=== PATIENT | female | born 1945 | race Caucasian/White ===

== ENCOUNTER → 2016-07-20 | Outpatient (CLI) | payer MEDICARE ==
--- NOTE | 2016-07-21 13:50 | MM ---
Reason for exam: screening (asymptomatic). Last mammogram was performed 6 months ago. History: Patient is postmenopausal. Physical Findings: A clinical breast exam by your physician is recommended on an annual basis and results should be correlated with mammographic findings. MG Screening Mammo w CAD Bilateral CC and MLO view(s) were taken. Prior study comparison: January 28, 2016, left breast MG diagnostic mammo LT w CAD. July 15, 2015, left breast MG 3d work up w/cad LT. July 10, 2015, bilateral MG screening mammo w CAD. May 15, 2014, mammogram, performed at [facility]. There are scattered fibroglandular densities. No significant changes when compared with prior studies. ASSESSMENT: Benign, BI-RAD 2 RECOMMENDATION: Routine screening mammogram of both breasts in 1 year.
== END ==
LOC: RADMAMWWP 10:17
PROVIDERS: ATTEND Internal Medicine
DX: Z12.31 Encounter for screening mammogram for malignant neoplasm of breast (principal)

== ENCOUNTER → 2017-05-13 | Outpatient (CLI) | payer MEDICARE ==
[2017-05-13 12:14] LABS: Basophils % (A) 1 %; Eosinophils # (A) 0.2 k/uL (0-0.7); Eosinophils % (A) 5 %; HCT 42.5 % (34.0-46.0); HGB 13.9 gm/dL (11.4-16.0); Lymphocytes # (A) 1.3 k/uL (1.0-4.8); Lymphocytes % (A) 30 %; MCH 28.9 pg (25.0-35.0); MCHC 32.7 g/dL (31.0-37.0); MCV 88.4 fL (80.0-100.0); Mean Platelet Volume 6.8; Monocytes # (A) 0.2 k/uL (0-1.0); Monocytes % (A) 5 %; Neutrophils # (A) 2.5 k/uL (1.3-7.7); Neutrophils % (A) 56 %; Platelet Count 245 k/uL (150-450); RBC 4.81 m/uL (3.80-5.40); RDW 13.1 % (11.5-15.5); WBC 4.4 k/uL (3.8-10.6)
[2017-05-13 12:23] LABS: ALT 82 U/L (9-52); AST 122 U/L (14-36); Albumin 4.5 g/dL (3.5-5.0); Alkaline Phosphatase 47 U/L (38-126); Anion Gap 13 mmol/L; Blood Urea Nitrogen 23 mg/dL (7-17); Carbon Dioxide 26 mmol/L (22-30); Chloride 103 mmol/L (98-107); Glucose 120 mg/dL (74-99); Potassium 4.2 mmol/L (3.5-5.1); Sodium 142 mmol/L (137-145); Total Bilirubin 0.5 mg/dL (0.2-1.3); Total Protein 7.3 g/dL (6.3-8.2)
--- NOTE | 2017-05-13 14:02 | CT ---
EXAMINATION TYPE: CT abdomen pelvis w con DATE OF EXAM: 05/13/2017 COMPARISON: NONE HISTORY: Back pain near kidney area CT DLP: 2096.8 mGycm CONTRAST: CT scan of the abdomen and pelvis is performed with Oral Contrast and with IV Contrast, patient injec mague with 100 mL of Omnipaque 300. FINDINGS: LUNG BASES-: No visible nodule. No infiltrate. LIVER/GB: Cholecystectomy clips are in place. There is evidence of hepatic steatosis. No space occ upying hepatic lesion. Biliary tree is of normal caliber. PANCREAS: No inflammation. No distinct mass. SPLEEN: No splenic enlargement. No lesion seen. ADRENALS: No nodule. No thickening. KIDNEYS/BLADDER: No hydronephrosis. No nephrolithiasis. No disctinct renal mass. Urinary bladder g rossly unremarkable. BOWEL: Normal appendix. Normal bowel caliber. No inflammation. GENITAL ORGANS: Hysterectomy changes. No evidence for adnexal mass. LYMPH NODES: No greater than 1cm abdominal or pelvic lymph nodes are appreciated. AORTA: No significant abnormality. OSSEOUS STRUCTURES: No significant abnormality is seen. OTHER: No significant additional abnormality is seen. IMPRESSION: 1. No significant abnormality to account for the patient's symptoms.
[2017-05-13 15:07] LABS: Appearance,Urine Clear (Clear); Bilirubin,Urine Negative (Negative); Blood,Urine Negative (Negative); Color,Urine Light Yellow; Glucose,Urine (UA) Negative (Negative); Ketones,Urine Negative (Negative); Leukocyte Esterase,Urine Negative (Negative); Nitrite,Urine Negative (Negative); PH, Urine 5.5 (5.0-8.0); Protein,Urine Negative (Negative); Urobilinogen,Urine <2.0 mg/dL (<2.0)
[2017-05-13 15:36] LABS: Erythrocyte Sedimentation Rate 8 mm/hr (0-20)
== END | disposition home or self-care (01) ==
LOC: RADCTMAIN 11:32
PROVIDERS: ATTEND Internal Medicine
DX: R10.9 Unspecified abdominal pain (principal); N39.0 Urinary tract infection, site not specified
CPT/HCPCS: 80053; 85652; 85025; 81003; 87086; 74177; 36415; Q9967

== ENCOUNTER → 2017-08-18 | Outpatient (CLI) | payer MEDICARE ==
--- NOTE | 2017-08-19 14:26 | MM ---
Reason for exam: screening (asymptomatic). Last mammogram was performed 1 year and 1 month ago. History: Patient is postmenopausal. Physical Findings: A clinical breast exam by your physician is recommended on an annual basis and results should be correlated with mammographic findings. MG Screening Mammo w CAD Bilateral CC and MLO view(s) were taken. Prior study comparison: July 20, 2016, bilateral MG screening mammo w CAD. January 28, 2016, left breast MG diagnostic mammo LT w CAD. The breast tissue is heterogeneously dense. This may lower the sensitivity of mammography. There is chronic nodularity bilaterally. No significant changes when compared with prior studies. ASSESSMENT: Benign, BI-RAD 2 RECOMMENDATION: Routine screening mammogram of both breasts in 1 year.
== END | disposition home or self-care (01) ==
LOC: RADMAMWWP 09:25
PROVIDERS: ATTEND Internal Medicine
DX: Z12.31 Encounter for screening mammogram for malignant neoplasm of breast (principal)
CPT/HCPCS: 77067

== ENCOUNTER → 2017-12-16 | Outpatient (CLI) | payer MEDICARE ==
[2017-12-16 11:33] LABS: Anion Gap 8 mmol/L; Blood Urea Nitrogen 16 mg/dL (7-17); Calcium 9.7 mg/dL (8.4-10.2); Carbon Dioxide 28 mmol/L (22-30); Chloride 107 mmol/L (98-107); Glucose 123 mg/dL (74-99); Magnesium 1.8 mg/dL (1.6-2.3); Potassium 4.1 mmol/L (3.5-5.1); Sodium 143 mmol/L (137-145)
== END | disposition home or self-care (01) ==
LOC: LABWHC1 10:15
PROVIDERS: ATTEND Internal Medicine
DX: E87.8 Other disorders of electrolyte and fluid balance, not elsewhere classified (principal); I10 Essential (primary) hypertension
CPT/HCPCS: 36415; 80048; 83735

== ENCOUNTER → 2018-01-04 | Outpatient (CLI) | payer MEDICARE ==
[2018-01-04 17:45] LABS: Hemoglobin A1C 6.2 % (4.0-6.0)
== END | disposition home or self-care (01) ==
LOC: LABWHC1 10:19
PROVIDERS: ATTEND Internal Medicine
DX: E11.9 Type 2 diabetes mellitus without complications (principal)
CPT/HCPCS: 36415; 83036

== ENCOUNTER → 2018-04-22 | Outpatient (CLI) | payer MEDICARE ==
[2018-04-22 18:29] LABS: Anion Gap 7.4 mmol/L (4.00-12.00); Carbon Dioxide 28.6 mmol/L (21.6-31.8); Potassium 4.4 mmol/L (3.5-5.5)
== END | disposition home or self-care (01) ==
LOC: LABWHC1 12:43
PROVIDERS: ATTEND Internal Medicine
DX: E11.9 Type 2 diabetes mellitus without complications (principal)
CPT/HCPCS: 36415; 80048; 83036

== ENCOUNTER → 2018-05-09 | Outpatient (CLI) | payer MEDICARE ==
--- NOTE | 2018-05-09 12:17 | XR ---
Left femur HISTORY: Osteoarthritis, pain 2 views of the left femur submitted on 5 images Bone mineralization is somewhat reduced. Joint space loss present at the medial compartment of the le ft knee with subchondral sclerosis and marginal spurring. Alignment is maintained. No fracture or dis location. IMPRESSION: Osteoarthritis left knee, suspect underlying osteopenia.
== END ==
LOC: RADXRMAIN 10:57
PROVIDERS: ATTEND Internal Medicine
DX: M81.0 Age-related osteoporosis without current pathological fracture (principal)

== ENCOUNTER → 2018-07-11 | Outpatient (CLI) | payer MEDICARE ==
[2018-07-11 11:42] LABS: Basophils % (A) 1 %; Eosinophils # (A) 0.2 k/uL (0-0.7); Eosinophils % (A) 4 %; HCT 38.9 % (34.0-46.0); HGB 12.7 gm/dL (11.4-16.0); Lymphocytes # (A) 1.2 k/uL (1.0-4.8); Lymphocytes % (A) 29 %; MCH 29.3 pg (25.0-35.0); MCHC 32.5 g/dL (31.0-37.0); Mean Platelet Volume 6.9; Monocytes # (A) 0.2 k/uL (0-1.0); Monocytes % (A) 6 %; Neutrophils # (A) 2.4 k/uL (1.3-7.7); Neutrophils % (A) 58 %; Platelet Count 220 k/uL (150-450); RBC 4.33 m/uL (3.80-5.40); RDW 13.7 % (11.5-15.5); WBC 4.1 k/uL (3.8-10.6)
[2018-07-11 13:35] LABS: Erythrocyte Sedimentation Rate 8 mm/hr (0-20)
[2018-07-11 18:43] LABS: ALT 43 U/L (8-44); AST 49 U/L (13-35); Alkaline Phosphatase 27 U/L (41-126); C Reactive Protein <0.4 mg/dL (0.0-0.8); Calcium 9.6 mg/dL (8.7-10.3); Carbon Dioxide 25.7 mmol/L (21.6-31.8); Chloride 109 mmol/L (96-109); Cholesterol 160 mg/dL (0-200); Glucose 105 mg/dL (70-110); LDL Cholesterol,Calculated 74.2 mg/dL (0.0-131.0); Magnesium 1.9 mg/dL (1.5-2.4); Potassium 4.1 mmol/L (3.5-5.5); Sodium 142 mmol/L (135-145); Total Bilirubin 0.4 mg/dL (0.3-1.2); Total Protein 6.2 g/dL (6.2-8.2)
[2018-07-11 18:49] LABS: Creatine Kinase 36 U/L (26-186); Uric Acid 8.1 mg/dL (2.9-7.7)
== END | disposition home or self-care (01) ==
LOC: LABWHC1 10:13
PROVIDERS: ATTEND Internal Medicine
DX: E11.9 Type 2 diabetes mellitus without complications (principal); E78.5 Hyperlipidemia, unspecified; I10 Essential (primary) hypertension; E55.9 Vitamin D deficiency, unspecified
CPT/HCPCS: 36415; 80053; 80061; 82272; 82306; 82550; 83036; 83735; 84443; 84550; 85025; 85652; 86140

== ENCOUNTER → 2018-08-31 | Outpatient (CLI) | payer MEDICARE ==
--- NOTE | 2018-09-02 11:54 | MM ---
Reason for exam: screening (asymptomatic). Last mammogram was performed 1 year ago. History: Patient is postmenopausal. Physical Findings: A clinical breast exam by your physician is recommended on an annual basis and results should be correlated with mammographic findings. MG Screening Mammo w CAD Bilateral CC and MLO view(s) were taken. Prior study comparison: August 18, 2017, bilateral MG screening mammo w CAD. July 20, 2016, bilateral MG screening mammo w CAD. The breast tissue is heterogeneously dense. This may lower the sensitivity of mammography. There is chronic nodularity bilaterally. No significant changes when compared with prior studies. ASSESSMENT: Benign, BI-RAD 2 RECOMMENDATION: Routine screening mammogram of both breasts in 1 year.
== END | disposition home or self-care (01) ==
LOC: RADMAMWWP 13:00
PROVIDERS: ATTEND Internal Medicine
DX: Z12.31 Encounter for screening mammogram for malignant neoplasm of breast (principal)
CPT/HCPCS: 77067

== ENCOUNTER → 2018-12-27 | Outpatient (CLI) | payer MEDICARE ==
[2018-12-27 18:13] LABS: Basophils % (A) 1 %; Eosinophils # (A) 0.2 k/uL (0-0.7); Eosinophils % (A) 5 %; HCT 37.9 % (34.0-46.0); HGB 12.5 gm/dL (11.4-16.0); Lymphocytes # (A) 1.3 k/uL (1.0-4.8); Lymphocytes % (A) 31 %; MCH 29.4 pg (25.0-35.0); MCV 89.1 fL (80.0-100.0); Mean Platelet Volume 6.7; Monocytes # (A) 0.2 k/uL (0-1.0); Monocytes % (A) 6 %; Neutrophils # (A) 2.4 k/uL (1.3-7.7); Neutrophils % (A) 55 %; Platelet Count 201 k/uL (150-450); RBC 4.26 m/uL (3.80-5.40); RDW 13.7 % (11.5-15.5); WBC 4.3 k/uL (3.8-10.6)
[2018-12-27 18:19] LABS: Appearance,Urine Cloudy (Clear); Bacteria,Urine Few /hpf; Bilirubin,Urine Negative (Negative); Blood,Urine Negative (Negative); Color,Urine Yellow; Glucose,Urine (UA) Negative (Negative); Ketones,Urine Negative (Negative); Leukocyte Esterase,Urine Small (Negative); Mucus,Urine Rare /hpf; Nitrite,Urine Positive (Negative); Protein,Urine Negative (Negative); RBC,Urine 1 /hpf (0-5); Specific Gravity,Urine 1.019 (1.001-1.035); Squamous Epithelial Cell,Urine 8 /hpf (0-4); Urobilinogen,Urine <2.0 mg/dL (<2.0); WBC,Urine 5 /hpf (0-5)
[2018-12-27 18:30] LABS: Albumin 4.2 g/dL (3.5-5.0); Calcium 9.3 mg/dL (8.4-10.2); Potassium 3.7 mmol/L (3.5-5.1); Total Bilirubin 0.3 mg/dL (0.2-1.3); Total Protein 6.9 g/dL (6.3-8.2)
== END | disposition home or self-care (01) ==
LOC: LABPAT 16:50
PROVIDERS: ATTEND Orthopaedic Surgery
DX: Z01.812 Encounter for preprocedural laboratory examination (principal); Z88.2 Allergy status to sulfonamides
CPT/HCPCS: 80053; 81001; 85025; 87086

== ENCOUNTER → 2019-02-16 | Outpatient (CLI) | payer MEDICARE ==
[2019-02-16 16:15] LABS: Albumin 4.4 g/dL (3.80-4.90); Albumin/Globulin Ratio 2.2 (1.60-3.17); Bilirubin, Conjugated 0.2 mg/dL (0.20-0.40); Bilirubin,Unconjugated 0.4 mg/dL; Total Bilirubin 0.6 mg/dL (0.2-1.2); Total Protein 6.4 g/dL (6.2-8.2)
[2019-02-16 18:00] LABS: Hepatitis A Antibody IgM Equivocal (Non-Reactive); Hepatitis B Core IgM Non-Reactive (Non-Reactive); Hepatitis B Surface Antigen Non-Reactive (Non-Reactive); Hepatitis C IgG Antibody Non-Reactive (Non-Reactive)
== END ==
LOC: LABWHC1 09:36
PROVIDERS: ATTEND Internal Medicine
DX: K75.9 Inflammatory liver disease, unspecified (principal)
CPT/HCPCS: 36415; 80074; 80076

== ENCOUNTER → 2019-05-31 | Outpatient (CLI) | payer MEDICARE ==
[2019-05-31 19:01] LABS: African American GFR (CKD) 106.3 (60.0-200.0); Anion Gap 9.7 mmol/L (4.00-12.00); Calcium 9.3 mg/dL (8.7-10.3); Carbon Dioxide 29.3 mmol/L (21.6-31.8); Non-African American GFR(CKD) 91.7 (60.0-200.0); Potassium 3.6 mmol/L (3.5-5.5)
[2019-05-31 22:11] LABS: Hemoglobin A1C 6.3 % (4.0-6.0)
== END ==
LOC: LABWHC1 10:45
PROVIDERS: ATTEND Internal Medicine
DX: E11.65 Type 2 diabetes mellitus with hyperglycemia (principal)
CPT/HCPCS: 36415; 80048; 83036

== ENCOUNTER → 2020-06-28 | Outpatient (CLI) | payer MEDICARE ==
--- NOTE | 2020-07-02 08:52 | MM ---
Reason for exam: screening (asymptomatic). Last mammogram was performed 1 year and 10 months ago. History: Patient is postmenopausal. Physical Findings: A clinical breast exam by your physician is recommended on an annual basis and results should be correlated with mammographic findings. MG 3D Screening Mammo W/Cad Bilateral CC and MLO view(s) were taken. Prior study comparison: August 31, 2018, bilateral MG screening mammo w CAD. August 18, 2017, bilateral MG screening mammo w CAD. There are scattered fibroglandular densities. There is chronic nodularity in the left breast. No significant changes when compared with prior studies. ASSESSMENT: Benign, BI-RAD 2 RECOMMENDATION: Routine screening mammogram of both breasts in 1 year.
== END | disposition home or self-care (01) ==
LOC: RADMAMWWP 13:36
PROVIDERS: ATTEND Internal Medicine
DX: Z12.31 Encounter for screening mammogram for malignant neoplasm of breast (principal)
CPT/HCPCS: 77063; 77067

== ENCOUNTER 2020-07-19 21:44 | Observation (INO) | payer MEDICARE ==
[2020-07-19] MEDS ORDERED: IBUPROFEN 600 MG TAB PO STA (22:32)
[2020-07-19] MEDS ORDERED: ACETAMINOPHEN TAB 500 MG TAB PO STA (22:32)
--- NOTE | 2020-07-19 22:33 | ED ---
Fever HPI - General Chief Complaint: Fever Stated Complaint: Blood Sugar Issues,Fever Time Seen by Provider: 07/19/20 22:28 Source: patient Mode of arrival: wheelchair Limitations: no limitations - Related Data Home Medications Medication Instructions Recorded Confirmed Eleuterio/D3/Mag11/Zinc/Training And Development Officer/Arie/Bor 1 tab PO DAILY 01/20/16 01/28/16 [Caltrate 600+D Plus Tablet] Doxylamine Succinate [Unisom] 25 mg PO HS PRN 01/20/16 01/28/16 Fenofibrate 160 mg PO DAILY 01/20/16 01/28/16 Fexofenadine HCl [Marla Allergy] 180 mg PO DAILY PRN 01/20/16 01/28/16 Fish Oil/Dha/Epa [Fish Oil 1,200 2 cap PO BID 01/20/16 01/28/16 mg Fish Oil] Lisinopril/Hydrochlorothiazide 1 tab PO DAILY 01/20/16 01/28/16 [Lisinopril-Hctz 20-12.5 mg Tab] Multivitamins, Thera [Multivitamin] 1 tab PO DAILY 01/20/16 01/28/16 Pioglitazone HCl 30 mg PO DAILY 01/20/16 01/28/16 amLODIPine BESYLATE [Norvasc] 10 mg PO HS 01/20/16 01/28/16 metFORMIN HCL 1,000 mg PO BID 01/20/16 01/28/16 Aspirin EC [Ecotrin] 325 mg PO HS 01/21/16 01/28/16 Previous Rx's Medication Instructions Recorded HYDROcodone/APAP 5-325MG [[place] 1 tab PO Q6HR PRN #10 tab 01/28/16 5-325] Allergies Allergy/AdvReac Type Severity Reaction Status Date / Time Sulfa (Sulfonamide Allergy Rash/Hives Verified 01/28/16 15:57 Antibiotics) Review of Systems ROS Statement: Those systems with pertinent positive or pertinent negative responses have been documented in the HPI. ROS Other: All systems not noted in ROS Statement are negative. Past Medical History Past Medical History: Diabetes Mellitus, Hyperlipidemia, Hypertension History of Any Multi-Drug Resistant Organisms: None Reported Past Surgical History: Hysterectomy, Orthopedic Surgery, Tonsillectomy Past Psychological History: No Psychological Hx Reported Smoking Status: Never smoker Past Alcohol Use History: None Reported Past Drug Use History: None Reported General Exam Limitations: no limitations Course Vital Signs 07/19/20 07/19/20 22:17 23:10 Temperature 101.7 F H Pulse Rate 112 H Respiratory 18 18 Rate Blood Pressure 144/75 O2 Sat by Pulse 96 Oximetry Medical Decision Making - Lab Data Result diagrams: 07/19/20 23:00 07/19/20 23:00 Lab Results 07/19/20 07/19/20 07/19/20 Range/Units 23:00 23:00 23:00 WBC 10.5 (3.8-10.6) k/uL RBC 5.08 (3.80-5.40) m/uL Hgb 14.9 (11.4-16.0) gm/dL Hct 44.0 (34.0-46.0) % MCV 86.6 (80.0-100.0) fL MCH 29.3 (25.0-35.0) pg MCHC 33.8 (31.0-37.0) g/dL RDW 13.4 (11.5-15.5) % Plt Count 134 L (150-450) k/uL MPV 7.8 Neutrophils % 87 % Lymphocytes % 5 % Monocytes % 4 % Eosinophils % 2 % Basophils % 0 % Neutrophils # 9.1 H (1.3-7.7) k/uL Lymphocytes # 0.6 L (1.0-4.8) k/uL Monocytes # 0.5 (0-1.0) k/uL Eosinophils # 0.2 (0-0.7) k/uL Basophils # 0.0 (0-0.2) k/uL PT 11.4 (9.0-12.0) sec INR 1.1 (<1.2) APTT 22.7 (22.0-30.0) sec Sodium 136 L (137-145) mmol/L Potassium 3.8 (3.5-5.1) mmol/L Chloride 100 (98-107) mmol/L Carbon Dioxide 23 (22-30) mmol/L Anion Gap 13 mmol/L BUN 20 H (7-17) mg/dL Creatinine 0.63 (0.52-1.04) mg/dL Est GFR (CKD-EPI)AfAm >90 (>60 ml/min/1.73 sqM) Est GFR (CKD-EPI)NonAf 90 (>60 ml/min/1.73 sqM) Glucose 205 H (74-99) mg/dL Calcium 9.8 (8.4-10.2) mg/dL Magnesium 1.5 L (1.6-2.3) mg/dL Total Bilirubin 0.8 (0.2-1.3) mg/dL AST 90 H (14-36) U/L ALT 56 H (4-34) U/L Alkaline Phosphatase 108 (38-126) U/L Lactate Dehydrogenase 348 (313-618) U/L C-Reactive Protein 18.0 H (<10.0) mg/L Total Protein 7.5 (6.3-8.2) g/dL Albumin 4.3 (3.5-5.0) g/dL - EKG Data -: EKG Interpreted by Me (EKG shows sinus tachycardia rate 112 [place] 84 QRS 90 QTC 439) Disposition Clinical Impression: Fever Narrative: ro BActeremia Disposition: ADMITTED IP TO THIS HOSP Condition: Good Is patient prescribed a controlled substance at d/c from ED?: No Referrals: Ellis Ochoa MD [Primary Care Provider] - 1-2 days
[2020-07-19 23:22] LABS: Basophils % (A) 0 %; Eosinophils # (A) 0.2 k/uL (0-0.7); Eosinophils % (A) 2 %; HGB 14.9 gm/dL (11.4-16.0); Lymphocytes # (A) 0.6 k/uL (1.0-4.8); Lymphocytes % (A) 5 %; MCH 29.3 pg (25.0-35.0); MCHC 33.8 g/dL (31.0-37.0); MCV 86.6 fL (80.0-100.0); Mean Platelet Volume 7.8; Monocytes # (A) 0.5 k/uL (0-1.0); Monocytes % (A) 4 %; Neutrophils # (A) 9.1 k/uL (1.3-7.7); Neutrophils % (A) 87 %; Platelet Count 134 k/uL (150-450); RBC 5.08 m/uL (3.80-5.40); RDW 13.4 % (11.5-15.5); WBC 10.5 k/uL (3.8-10.6)
[2020-07-19 23:32] LABS: INR 1.1 (<1.2); Partial Thromboplastin Time 22.7 sec (22.0-30.0); Prothrombin Time 11.4 sec (9.0-12.0)
--- NOTE | 2020-07-19 23:32 | XR ---
EXAMINATION TYPE: XR chest 1V portable DATE OF EXAM: 07/19/2020 COMPARISON: 01/21/2016 HISTORY: Pneumonia. Chest pain TECHNIQUE: FINDINGS: Heart and mediastinum are normal. Lungs are clear. Diaphragm is normal. There are chest jocelynn ds. There is small granuloma in the right lower lobe. Bony thorax appears intact. IMPRESSION: No active cardiopulmonary disease. No change.
[2020-07-20 00:02] LABS: ALT 56 U/L (4-34); AST 90 U/L (14-36); African American GFR (CKD) >90 (>60 ml/min/1.73 sqM); Albumin 4.3 g/dL (3.5-5.0); Alkaline Phosphatase 108 U/L (38-126); Anion Gap 13 mmol/L; Blood Urea Nitrogen 20 mg/dL (7-17); Calcium 9.8 mg/dL (8.4-10.2); Carbon Dioxide 23 mmol/L (22-30); Chloride 100 mmol/L (98-107); Glucose 205 mg/dL (74-99); LDH 348 U/L (313-618); Magnesium 1.5 mg/dL (1.6-2.3); Non-African American GFR(CKD) 90 (>60 ml/min/1.73 sqM); Potassium 3.8 mmol/L (3.5-5.1); Sodium 136 mmol/L (137-145); Total Bilirubin 0.8 mg/dL (0.2-1.3); Total Protein 7.5 g/dL (6.3-8.2)
[2020-07-20] MEDS ORDERED: IBUPROFEN 400 MG TAB PO PRN (00:45)
[2020-07-20] MEDS ORDERED: ONDANSETRON 4 MG/2 ML VIAL IVP PRN (00:45)
[2020-07-20] MEDS ORDERED: MORPHINE SULFATE 4 MG/ML SYRINGE IV PRN (00:45)
[2020-07-20] MEDS ORDERED: NALOXONE 0.4 MG/ML 1 ML VIAL IV PRN (00:45)
[2020-07-20] MEDS ORDERED: ACETAMINOPHEN TAB 325 MG TAB PO PRN (00:45)
[2020-07-20] MEDS: SODIUM CHLORIDE 0.9% 1,000 ML IV SCH ×4 (01:34→22:32)
[2020-07-20 05:57] LABS: Appearance,Urine Clear (Clear); Bilirubin,Urine Negative (Negative); Blood,Urine Negative (Negative); Color,Urine Yellow; Glucose,Urine (UA) Negative (Negative); Hyaline Casts,Urine 28 /lpf (0-2); Ketones,Urine Negative (Negative); Leukocyte Esterase,Urine Trace (Negative); Mucus,Urine Few /hpf; Nitrite,Urine Negative (Negative); PH, Urine 5.5 (5.0-8.0); Protein,Urine Trace (Negative); RBC,Urine 1 /hpf (0-5); Specific Gravity,Urine 1.018 (1.001-1.035); Squamous Epithelial Cell,Urine 6 /hpf (0-4); Urobilinogen,Urine <2.0 mg/dL (<2.0); WBC,Urine 1 /hpf (0-5)
[2020-07-20 07:57] LABS: Glucose,Whole Blood 205 mg/dL (75-99)
[2020-07-20 12:08] LABS: Glucose,Whole Blood 252 mg/dL (75-99)
[2020-07-20] MEDS: INSULIN ASPART (NovoLOG) 100 UNIT/ML VIAL SQ SCH ×4 (13:14→20:55)
[2020-07-20] MEDS ORDERED: NON FORMULARY DRUG (Doxylamine Succinate [Unisom] 25 MG Tablet) PO PRN (13:20)
[2020-07-20] MEDS: NON FORMULARY DRUG (Cal/D3/Mag11/Zinc/Cop/Mang/Bor [Caltrate 600+D Plus Tablet] 1 EACH Tab PO SCH (13:34)
[2020-07-20] MEDS: CHOLECALCIFEROL 25 MCG (1000 IU) TABLET PO SCH (13:37)
[2020-07-20] MEDS: MULTIVITAMINS, THERA 1 EACH TAB PO SCH (13:37)
[2020-07-20] MEDS: METOPROLOL SUCCINATE (ER) 25 MG TAB.ER.24H PO SCH (13:37)
[2020-07-20] MEDS: MAGNESIUM SULFATE-D5W PMX 1 GM in DEXTROSE/WATER 1 100ML.BAG IVPB SCH ×2 (14:55→16:21)
--- NOTE | 2020-07-20 15:01 | P.HPIM ---
History of Present Illness H&P Date: 07/20/20 (Abnormal liver enzyme, fever post second shot of blood during the vaccination for covid) Chief Complaint: Patient presented with hyperglycemia uncontrolled diabetes and fever 102 at History and physical dictation on 07/20/[address] Ochoa . Chief complaint Patient presented to the emergency room at [facility] with the fever [id number] at home with the progressive increase in temperature associated with hyperglycemia with the underlying diabetes mellitus. 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 As her attending I was not notified with the admission. Hospital course: Patient admitted to the fourth floor [facility] with the IV antibiotic Rocephin and she received 1 g IV piggyback. With the diagnosis from the ER of fever of unknown etiology. Patient had a chest x-ray and was negative, her white count 10.5 normal hemoglobin 14.9 normal MCV 86.6 normal and the platelet count 134 no evidence of bleeding or hemoptysis or hematemesis. Also her PT and INR was normal and the PTT as well Chemistry in the ER indicating her sodium 136 potassium 3.8 chloride 100 and the carbon dioxide 23 and BUN of 20 and creatinine 0.63 also her E GFR was 94 non- her blood sugar was 2005 with hyperglycemia and uncontrolled. Calcium 9.8, magnesium low 1.5 was not received any magnesium in the ER that she had heart rate of 112 with the tachycardia we will infuse her with 2 g of magnesium and check tomorrow her magnesium. C-reactive protein 18 high and LDH 348 alk phos 108 pulses normal and the protein 7.5 albumin 4.3 Urine analysis was yellow clear and the pH of 5.5 trace protein and trace leukocyte esterase no evidence of urinary tract infection. Currently he has patient seen after the nursing staff called me and told me that the patient admitted to the hospital which I did not know from the ER. I came and checked the patient and she currently denied any fever or chills and her temperature is normal with the history clarification from the patient. Patient received her vaccination second shot MADRONA COVID vaccination and on and subsequently by the evening started to have the fever which is expected with [place] pot patient was worried about also the sugar the blood glucose. As patient admitted to the hospital they started her in the ER of Rocephin. IV piggyback 1 g daily. Past medical history: Patient had history of abnormal liver enzyme which is resistant as well as history of hepatitis a was fluctuating with the present of IgM and the past and repeat testing showed some still positivity which is unclear if it related to hepatic steatosis versus related to hepatitis A and if it is has a chronicity or chronic carrier is unclear. We'll be consulting infectious disease as well as a gastroenterology. Diabetes mellitus type 2 on oral hypoglycemic agent as well insulin however hyperglycemia was presented on admission. Hepaticus steatosis. ALLERGY sulfonamide. Social history: She is have to sons and 1 daughter. Nonsmoker, nondrinker. Right hip surgery. No history of DVT. Review of system: Neuropsychiatry negative Cardiovascular: Hypertension controlled, no history of tachycardia, history of hyper lipidemia. Pulmonary: No history of pneumonia or lung disease or shortness of breath. GI she has history of intermittent nausea and vomiting, history of hepaticus steatosis, resistant elevation of liver enzyme, history of hepatitis a in the past and lost check was IgM equivocal and repeated on this admission to clarify the etiology. With the consultation of the gastroenterology. And infectious disease : No evidence of urinary tract infection, urine control is satisfactory to the patient. Musculoskeletal: Arthritis but she is able to ambulate and walk normally. Endocrine hyperglycemia just recently after she had her shot of vaccination for Covid. The rest of 14 bullet was non-contributory. On physical examination: Temperature 101.7, subsequent 100 F oral on exam today on 07/20/2020 she is 98.3 or. Her heart rate at the time of admission 112 with the presence of tachycardia which subsequently 100 and currently 82. Respiratory rate was stable, pulse ox 95-96, Blood pressure on admission was 144/75 with a mean 98, on the exam patient blood pressure 109/56 with a mean 73. The head was normocephalic and atraumatic, pupil was equal reactive, conjunctivae bowel was pink no icterus, normal hearing, upper plate denture, lower jaw a few teeth. Neck was supple no JVD no thyromegaly no lymphadenopathy trachea midline. Chest is clear no wheezes nor rhonchi's. The heart: PMI in the fifth intercostal space outside midclavicular line normal S1-S2 no gallop she had a murmur on the left sternal border grade 2/6. Abdomen: Protuberant obese and positive bowel sounds no tenderness on the 4 quadrants. She had remote history of splenomegaly however I could not palpate. Extremities: No edema positive pulses and she is ambulatory Neurologically: No lateralizing sign, normal cranial nerve. Assessment: #1 fever on admission with no finding probably secondary to the second dose of Covid vaccination injection left arm which has been expected. #2 abnormal liver enzyme with the underlying history of positive hepatitis A #3 with a persistent liver enzyme and the possibilities of effect of hepatitis versus hepaticus steatosis we'll be asking the gastroenterology and the day infectious disease for help clarification. #4 hypomagnesemia, sinus tachycardia. Plan: We'll consult the gastroenterology, as well as infectious disease, for clarification and documentation of her current illness and the need for antibiotic which was given in the emergency room with the above information valid to me area Supplementation of the magnesium. Repeat laboratory in a.m. Monitor the temperature and the oxygen. Ambulate as tolerated. Discharge after the evaluation of both consulting physician. Controlled diabetes mellitus with her usual medication plus the insulin to scale. We'll restart her pioglitazone that she has been taken at home chronically. Past Medical History Past Medical History: Diabetes Mellitus, Hyperlipidemia, Hypertension History of Any Multi-Drug Resistant Organisms: None Reported Past Surgical History: Hysterectomy, Orthopedic Surgery, Tonsillectomy Past Anesthesia/Blood Transfusion Reactions: No Reported Reaction Past Psychological History: No Psychological Hx Reported Smoking Status: Never smoker Past Alcohol Use History: None Reported Past Drug Use History: None Reported - Past Family History Father Family Medical History: Myocardial Infarction (DC) Mother Family Medical History: COPD, CVA/TIA, Myocardial Infarction (DC) Medications and Allergies Home Medications Medication Instructions Recorded Confirmed Type Eleuterio/D3/Mag11/Zinc/Fuel Storage Technician/Arie/Bor 1 tab PO DAILY 01/20/16 07/20/20 History [Caltrate 600+D Plus Tablet] Doxylamine Succinate [Unisom] 25 mg PO HS PRN 01/20/16 07/20/20 History amLODIPine BESYLATE [Norvasc] 10 mg PO HS 01/20/16 07/20/20 History Aspirin EC [Ecotrin Low Dose] 81 mg PO HS 07/20/20 07/20/20 History Cholecalciferol [Vitamin D3 (25 25 mcg PO DAILY 07/20/20 07/20/20 History Mcg = 1000 Iu)] Insulin Aspart [NovoLOG Flexpen] See Protocol SQ AC-TID 07/20/20 07/20/20 History Insulin Glargine,Hum.rec.anlog 10 unit SQ HS 07/20/20 07/20/20 History [Lantus Solostar] Metoprolol Succinate [Toprol XL] 25 mg PO DAILY 07/20/20 07/20/20 History Multivit with Calcium,Iron,Min 1 tab PO DAILY 07/20/20 07/20/20 History [Women's Multivitamin] Allergies Allergy/AdvReac Type Severity Reaction Status Date / Time Sulfa (Sulfonamide Allergy Rash/Hives Verified 07/20/20 07:37 Antibiotics) Physical Exam Vitals: Vital Signs Temp Pulse Pulse Pulse Resp BP BP 07/20/20 08:45 18 07/20/20 08:00 98.4 F 81 18 121/67 07/20/20 03:30 98.3 F 82 18 109/56 07/20/20 01:45 100 07/20/20 00:55 100 F H 100 17 123/54 07/19/20 23:10 18 07/19/20 22:17 101.7 F H 112 H 18 144/75 Pulse Ox 07/20/20 08:45 07/20/20 08:00 95 07/20/20 03:30 95 07/20/20 01:45 07/20/20 00:55 96 07/19/20 23:10 07/19/20 22:17 96 Intake and Output 07/19/20 07/20/20 07/20/20 22:59 06:59 14:59 Other: Voiding Method Toilet Toilet Weight 87.997 kg 87.997 kg Results CBC & Chem 7: 07/19/20 23:00 07/19/20 23:00 Labs: Abnormal Lab Results - Last 24 Hours (Table) 07/19/20 07/19/20 07/20/20 Range/Units 23:00 23:00 05:30 Plt Count 134 L (150-450) k/uL Neutrophils # 9.1 H (1.3-7.7) k/uL Lymphocytes # 0.6 L (1.0-4.8) k/uL Sodium 136 L (137-145) mmol/L BUN 20 H (7-17) mg/dL Glucose 205 H (74-99) mg/dL POC Glucose (mg/dL) (75-99) mg/dL Magnesium 1.5 L (1.6-2.3) mg/dL AST 90 H (14-36) U/L ALT 56 H (4-34) U/L C-Reactive Protein 18.0 H (<10.0) mg/L Urine Protein Trace H (Negative) Ur Leukocyte Esterase Trace H (Negative) Ur Squamous Epith Cells 6 H (0-4) /hpf Hyaline Casts 28 H (0-2) /lpf Urine Mucus Few H (None) /hpf 07/20/20 07/20/20 Range/Units 07:52 12:06 Plt Count (150-450) k/uL Neutrophils # (1.3-7.7) k/uL Lymphocytes # (1.0-4.8) k/uL Sodium (137-145) mmol/L BUN (7-17) mg/dL Glucose (74-99) mg/dL POC Glucose (mg/dL) 205 H 252 H (75-99) mg/dL Magnesium (1.6-2.3) mg/dL AST (14-36) U/L ALT (4-34) U/L C-Reactive Protein (<10.0) mg/L Urine Protein (Negative) Ur Leukocyte Esterase (Negative) Ur Squamous Epith Cells (0-4) /hpf Hyaline Casts (0-2) /lpf Urine Mucus (None) /hpf Thrombosis Risk Factor Assmnt - Choose All That Apply Any of the Below Risk Factors Present?: Yes Each Factor Represents 1 point: Obesity (BMI >25) Other Risk Factors: Yes Each Risk Factor Represents 2 Points: Age 61-74 years Other congenital or acquired thrombophilia - If yes, enter type in comment: No Thrombosis Risk Factor Assessment Total Risk Factor Score: 3 Thrombosis Risk Factor Assessment Level: Moderate Risk
[2020-07-20 16:55] LABS: Glucose,Whole Blood 195 mg/dL (75-99)
[2020-07-20] MEDS: PIOGLITAZONE 15 MG TAB PO SCH (17:41)
[2020-07-20 19:00] LABS: Hemoglobin A1C 7.4 % (4.0-6.0)
[2020-07-20 20:28] LABS: Glucose,Whole Blood 212 mg/dL (75-99)
[2020-07-20] MEDS: ASPIRIN 81 MG PO SCH (20:55)
[2020-07-20] MEDS: amLODIPine 10 MG TAB PO SCH (20:55)
[2020-07-20] MEDS: INSULIN DETEMIR (LEVEMIR) 100 UNIT/ML SYR SQ SCH (20:55)
[2020-07-20 23:10] LABS: Hepatitis A Antibody IgM Equivocal (Non-Reactive); Hepatitis B Core IgM Non-Reactive (Non-Reactive); Hepatitis B Surface Antigen Non-Reactive (Non-Reactive); Hepatitis C IgG Antibody Non-Reactive (Non-Reactive)
--- NOTE | 2020-07-21 07:00 | CONS ---
CONSULTATION DATE OF SERVICE: 07/20/2020 REASON FOR CONSULTATION: Fever. HISTORY OF PRESENT ILLNESS: The patient is a 74-year-old female who apparently did have a 2nd Moderna shot on the . Patient presenting to the hospital yesterday evening for evaluation of fever and chills and progressive weakness. The patient did have some headache but denies any photophobia. No nausea, no vomiting. No chest pain, shortness of breath or cough. No abdominal pain or any diarrhea. With these symptoms, the patient was evaluated by the ER physician. On arrival to the ER, the patient did have a fever of 101.7 degrees Fahrenheit. The patient did not have any tachycardia or hypoxemia, currently 96-94% on room air. The patient did have a normal white count. Kidney function was normal. Liver enzymes mildly elevated. Urine was negative. Chest x-ray reported negative. The patient was started on Rocephin and has been admitted to the hospital. Infectious Disease was consulted for further management of antibiotic therapy. The patient did have history of elevated liver enzymes and did have a previous history of positive hepatitis A which seems to have been coming back repeatedly positive. REVIEW OF SYSTEMS: Positive points have been mentioned in HPI. Rest of systems negative. PAST MEDICAL HISTORY: Diabetes mellitus, hypertension, hyperlipidemia. PAST SURGICAL HISTORY: Hysterectomy, tonsillectomy, orthopedic surgery. SOCIAL HISTORY: Patient denies smoking, drinking or drug use. FAMILY HISTORY: No pertinent findings noticed. ALLERGIES: SULFA. MEDICATIONS: The patient is currently on Tylenol, Norvasc, aspirin, vitamin D3, Motrin, NovoLog, Levemir, Toprol-XL, morphine sulfate, Theragran, Narcan, Zofran, Actos, and IV fluid. PHYSICAL EXAMINATION: VITAL SIGNS: Blood pressure 148/62 with a pulse of 83, temperature 99.2, she is 94% on room air. GENERAL DESCRIPTION: Patient is an elderly female lying in bed in no distress. No tachypnea or accessory muscles of respiration use. HEENT: Examination shows no pallor or scleral icterus. Oral mucous membrane is dry. NECK: Trachea central, no thyromegaly. LUNGS: Unlabored breathing, clear to auscultation. No wheeze or crackle. HEART: S1-S2, regular rate and rhythm. ABDOMEN: Soft, no tenderness. No guarding or rigidity. EXTREMITIES: No edema of the feet. SKIN: No rash or mass palpable. NEUROLOGICAL: Patient is awake, alert, oriented times three. Mood and affect normal. LABS: Hemoglobin is 14.8, white count 10.5, BUN of 20, creatinine 0.6. Electrolytes have been normal. Liver enzymes are mildly elevated. Urine was negative. DIAGNOSTIC IMPRESSION: 1. Patient admitted to the hospital with fever more likely related to the patient receiving a 2nd dose of Moderna. It is common to have febrile patient after the second dose and that has been seen frequently. The patient currently does not have any obvious focus of infection. Chest x-ray reported negative. Urine is negative. Abdomen is soft on examination. No evidence of any cellulitis. 2. Patient with elevated liver enzymes, previous history of hepatitis A. PLAN: 1. We will discontinue Rocephin as no evidence of any bacterial infection. 2. Gatica nasopharyngeal swab will be checked. 3. Await hepatitis serology. 4. We will follow on clinical condition and investigation to further adjust medication if needed. Thank you for this consultation. Will follow this patient along with you. MMODL / IJN: [id number] /
[2020-07-21 07:03] LABS: Glucose,Whole Blood 137 mg/dL (75-99)
[2020-07-21] MEDS: INSULIN ASPART (NovoLOG) 100 UNIT/ML VIAL SQ SCH ×7 (07:57→21:46)
[2020-07-21] MEDS: NON FORMULARY DRUG (Cal/D3/Mag11/Zinc/Cop/Mang/Bor [Caltrate 600+D Plus Tablet] 1 EACH Tab PO SCH (07:58)
[2020-07-21] MEDS: MULTIVITAMINS, THERA 1 EACH TAB PO SCH (08:02)
[2020-07-21] MEDS: METOPROLOL SUCCINATE (ER) 25 MG TAB.ER.24H PO SCH (08:02)
[2020-07-21] MEDS: CHOLECALCIFEROL 25 MCG (1000 IU) TABLET PO SCH (08:02)
[2020-07-21] MEDS: PIOGLITAZONE 15 MG TAB PO SCH (08:03)
[2020-07-21 09:10] LABS: Basophils # (A) 0.04 X 10*3/uL (0.00-0.10); Basophils % (A) 0.5 %; Eosinophils # (A) 0.29 X 10*3/uL (0.04-0.35); Eosinophils % (A) 3.7 %; HCT 41.7 % (37.2-46.3); HGB 13.4 g/dL (12.0-15.0); Lymphocytes # (A) 1.79 X 10*3/uL (0.90-5.00); Lymphocytes % (A) 22.6 %; MCH 28.9 pg (27.0-32.0); MCHC 32.1 g/dL (32.0-37.0); MCV 90.1 fL (80.0-97.0); Mean Platelet Volume 10.8 fL (9.5-12.2); Monocytes # (A) 0.62 X 10*3/uL (0.20-1.00); Monocytes % (A) 7.8 %; Neutrophils # (A) 5.16 X 10*3/uL (1.80-7.70); Neutrophils % (A) 65.1 %; Platelet Count 141 X 10*3/uL (140-440); RBC 4.63 X 10*6/uL (4.10-5.20); RDW 13.3 % (11.5-14.5); WBC 7.92 X 10*3/uL (4.50-10.00)
[2020-07-21 09:33] LABS: African American GFR (CKD) 105.5 (60.0-200.0); Albumin/Globulin Ratio 1.82 (1.60-3.17); Anion Gap 7.7 mmol/L (4.00-12.00); BUN/Creat Ratio 21.67 Ratio (12.00-20.00); Bilirubin, Conjugated 0.3 mg/dL (0.20-0.40); Bilirubin,Unconjugated 0.3 mg/dL; Calcium 9.2 mg/dL (8.7-10.3); Carbon Dioxide 27.3 mmol/L (21.6-31.8); Globulin 2.2 g/dL (1.6-3.3); Magnesium 1.9 mg/dL (1.5-2.4); Non-African American GFR(CKD) 91.1 (60.0-200.0); Phosphorus 3.1 mg/dL (2.4-5.1); Potassium 4.1 mmol/L (3.5-5.5); Total Bilirubin 0.6 mg/dL (0.2-1.2); Total Protein 6.2 g/dL (6.2-8.2)
[2020-07-21 11:39] LABS: Glucose,Whole Blood 193 mg/dL (75-99)
[2020-07-21] MEDS: SODIUM CHLORIDE 0.9% 1,000 ML IV SCH (12:23)
[2020-07-21] MEDS ORDERED: ENALAPRILAT 1.25 MG/ML 1 ML VIAL IVP PRN (13:23)
[2020-07-21] MEDS: lisinopriL 5 MG TAB PO SCH (13:56)
--- NOTE | 2020-07-21 13:58 | P.PN ---
Subjective Progress Note Date: 07/21/20 (Blood pressure 173/73 uncontrolled hypertension.) Principal diagnosis: #1 abnormal liver enzyme with a history of hepatitis a positive and continue fluctuating the result of repeat testing is unavailable. #2 fever with the erythema of the left arm associated with that he to vacc ination for COVID [place] on July 18. #3 diabetes mellitus type 2 insulin dependent. #4 obesity. #5 abnormal liver enzyme with the association with hepaticus steatosis versus effect of hepatitis. #5 Covid test done on this admission negative, patient already had her 2 shots of vaccination Aguilar is a type the last one on 07/18/20 with erythema of the left arm, ice applied. #6 patient presented to the ER with a temperature more than 101 and at home was 102 which concerned the patient and came to the emergency room. #7 hypertension with a blood pressure today on 07/21 2020 173/73 and prior to that 150/79. With the stable pulse ox 98%. This is a progress note on the date of service 07/21/20. Dictation by Dr. HIDALGO Patient seen and evaluated today [id number]-[id number]-bdls discussed with the patient in detail and her in the room. Also discussed today with Nora Wilkes gastroenterology in regard of her fluctuating IgM antibodies for hepatitis A, and we order the panel however the result is not available. Nora Valdez. She will be seeing her in the office and she will repeat the whole panel the chronic and acute to see the etiology of this problem Patient probably had hepatic steatosis with the resistant elevated liver enzyme however today on the laboratories has been improved. I did also discuss the case with Dr. Huang yesterday on 07/20/2020 in detail. Her vital signs today temperature 98.3 F oral, pulse rate 75/m, respiratory rate 16, blood pressure 150/79, repeat 173/73. Pulse ox is 9896 on room air. The head was normocephalic and atraumatic, pupil was equal reactive, no icterus, oropharynx no infection. Neck was supple no JVD no lymphadenopathy no thyromegaly. Chest she had mild kyphosis and scoliosis, normal breath sound no wheezes no rhonchi's. Heart: Regular sinus rhythm, positive murmur grade 2/6 on the left sternal border, PMI in the fifth intercostal space outside midclavicular line with the underlying hypertensive heart disease. Abdomen soft: Soft positive bowel sounds no organ enlargement obese. Extremities: No edema and positive pulses. Laboratories: #1 POC glucose ranging between 137-212 and patient started on pioglitazone, also she is on insulin to scale as well as long-acting insulin at night, With improvement we'll not change the medication. #2 white count 7.92, hemoglobin 13.4, and platelet count 141 and hematocrit is 41.7, MCV 90.1. #3 sodium 143, potassium 4.1, BUN 13, creatinine 0.6. Blood glucose 147. Calcium 9.2, magnesium 1.9 which is corrected was 1.5 and currently normalize after she received the 2 g magnesium IV piggyback. #4 in regard of abnormal liver enzyme, AST 43, a LT 41, alk phos 79, total protein 6.2, albumin is 4, and albumin/globulin ratio 1.8 to which is normal range. Significant improvement from admission. Assessment and plan: #1 no evidence of bacterial infection, normal chest x-ray, normal white count, normal urine analysis, patient seen by infectious disease Dr. Huang and antibiotic has been discontinued. #2 diabetes mellitus2 insulin-dependent uncontrolled, currently improving with the adjustment of her medication. And adding the pioglitazone. #3 underlying chronic fluctuation of hepatitis panel, with the history of hepatis steatosis, versus effect of hepatitis A, in progress we don't have the laboratory for the acute hepatitis panel. Number #4 hypertension progressed with the hypertensive heart disease, with a blood pressure 173/73 and the prior blood pressure was 150/79, unstable will wait for tomorrow for reevaluation and adjustment of medication today. #5 added to her list of medication lisinopril 5 mg daily 1 dose today, as well as adding Vasotec 1.25 mg IV every 6 hour if the blood pressure above 150 systolic. #6 we will be increasing her Toprol XL to 50 mg once daily start today which was before that 25 mg. #7 we'll assess tomorrow with the probably discharge in 24 hours after controlling the blood pressure. #8 to follow-up with Nora Valdez, also follow-up with Dr. Huang infectious disease post discharge. Objective - Vital Signs Vital signs: Vital Signs Temp 98.3 F 07/21/20 07:50 Pulse 76 07/21/20 13:09 Resp 16 07/21/20 07:50 BP 173/73 07/21/20 13:09 Pulse Ox 96 07/21/20 07:59 Intake & Output 07/20/20 07/21/20 07/21/20 18:59 06:59 18:59 Intake Total 200 Balance 200 Intake: Oral 200 Other: Voiding Method Toilet Toilet # Voids 3 - Labs CBC & Chem 7: 07/21/20 06:18 07/21/20 06:18 Labs: Abnormal Lab Results - Last 24 Hours (Table) 07/20/20 07/20/20 07/20/20 Range/Units 06:50 07:46 16:52 BUN/Creatinine Ratio (12.00-20.00) Ratio Glucose (70-110) mg/dL POC Glucose (mg/dL) 195 H (75-99) mg/dL Hemoglobin A1c 7.4 H (4.0-6.0) % AST (13-35) U/L Hepatitis A IgM Ab Equivocal A (Non-Reactive) 07/20/20 07/21/20 07/21/20 Range/Units 20:26 06:18 06:49 BUN/Creatinine Ratio 21.67 H (12.00-20.00) Ratio Glucose 147 H (70-110) mg/dL POC Glucose (mg/dL) 212 H 137 H (75-99) mg/dL Hemoglobin A1c (4.0-6.0) % AST 43 H (13-35) U/L Hepatitis A IgM Ab (Non-Reactive) 07/21/20 Range/Units 11:37 BUN/Creatinine Ratio (12.00-20.00) Ratio Glucose (70-110) mg/dL POC Glucose (mg/dL) 193 H (75-99) mg/dL Hemoglobin A1c (4.0-6.0) % AST (13-35) U/L Hepatitis A IgM Ab (Non-Reactive) Microbiology - Last 24 Hours (Table) 07/19/20 23:15 Blood Culture - Preliminary Blood No Growth after 24 hours 07/19/20 23:00 Blood Culture - Preliminary Blood No Growth after 24 hours
[2020-07-21] MEDS ORDERED: METOPROLOL SUCCINATE (ER) 25 MG TAB.ER.24H PO STA (14:04)
[2020-07-21] MEDS: METOPROLOL SUCCINATE (ER) 50 MG TAB.ER.24H PO SCH (14:05)
[2020-07-21 16:42] LABS: Glucose,Whole Blood 150 mg/dL (75-99)
--- NOTE | 2020-07-21 19:12 | CONS ---
CONSULTATION DATE OF SERVICE: 07/21/2020 REASON FOR CONSULTATION: Elevated LFTs. HISTORY OF PRESENT ILLNESS: The patient is a 74-year-old pleasant white female with history of diabetes mellitus, hypertension, hyperlipidemia, admitted to the hospital after having a reaction to her COVID-19 vaccine. She received the vaccine two days ago and she developed severe rash at the site of injection followed by fever of 102 and had severe hyperglycemia and subsequently came to the ER and admitted to the hospital for further management. She is currently on broad-spectrum antibiotics. She was noted to have mild elevation of serum transaminases and on further questioning she states that her serum transaminases have been elevated since she was living in [place] about six years ago. She was told her liver enzymes have been fluctuating. She denies any prior history of jaundice or hepatitis in the past. At one point she had workup done. Hepatitis serologies apparently did show hepatitis A IgM that was positive and then when repeated it was equivocal. On reviewing her labs, her serum transaminases always ranged between 50-100 with normal T bilirubin and alkaline phosphatase. The patient currently reports no abdominal pain. No nausea, no vomiting. PAST MEDICAL HISTORY: Significant for diabetes mellitus diagnosed two years ago, history of hypertension, hyperlipidemia. MEDICATIONS: Include Norvasc, multivitamin, Toprol, NovoLog, Lantus, Unisom, Ecotrin, calcium, vitamin D3. ALLERGIES: SULFA. SOCIAL HISTORY: No smoking, no alcohol use. FAMILY HISTORY: Unremarkable. PAST SURGICAL HISTORY: Hysterectomy and tonsillectomy. REVIEW OF SYSTEMS: CARDIOPULMONARY: No chest pain or shortness of breath. GENITOURINARY: No dysuria or hematuria. MUSCULOSKELETAL: Unremarkable. SKIN: Unremarkable except for some redness at the site of her vaccine in the left arm. ENDOCRINE: Unremarkable. PSYCHIATRIC: Unremarkable. NEUROLOGY: Unremarkable. ENT/VISION: Unremarkable. CONSTITUTIONAL: No recent weight loss. She had some fever and chills but no night sweats. HEMATOLOGY: Unremarkable. PHYSICAL EXAMINATION: She appears comfortable. VITAL SIGNS: Stable. Blood pressure 117/70, pulse is 76, temperature 98.8. HEENT examination unremarkable. Conjunctivae pink. Sclerae anicteric. Oral cavity, no lesions. NECK: No JVD or lymph node enlargement. CHEST: Clear to auscultation. HEART: Regular rate and rhythm. ABDOMEN: Soft. Bowel sounds are positive. No organomegaly. EXTREMITIES: No pedal edema. SKIN; No rashes. NEUROLOGIC: Alert and oriented x3. No focal deficits. LABS: WBC 7.9, hemoglobin 13, platelets normal. Basic metabolic panel is within normal limits. AST and ALT were elevated at 90 and 56 respectively. T bilirubin and alkaline phosphatase are normal. Repeat labs from today AST is 43, ALT is 41. No imaging studies available. IMPRESSION: 1. Mild elevation of serum transaminases for the last 6-7 years duration. Patient with history of diabetes mellitus, hypertension, hyperlipidemia and overweight and this clinical picture is very consistent with fatty liver disease. Of course, other etiologies need to be excluded. She never had any workup for chronic liver disease in the past except for hepatitis serologies that were negative according to the patient, except for hepatitis A IgM that was equivocal. 2. History of diabetes mellitus. 3. History of hypertension. 4. COVID-19 vaccination with some side effects which are improving. RECOMMENDATIONS: 1. We will do workup for chronic liver disease. 2. Ultrasound of the liver. 3. Patient was advised to follow up in office in two weeks following discharge from the hospital for continued workup of elevated LFTs. Thank you for this consultation. MMODL / IJN: [id number] /
[2020-07-21 21:40] LABS: Glucose,Whole Blood 168 mg/dL (75-99)
[2020-07-21] MEDS: ASPIRIN 81 MG PO SCH (21:45)
[2020-07-21] MEDS: amLODIPine 10 MG TAB PO SCH (21:45)
[2020-07-21] MEDS: INSULIN DETEMIR (LEVEMIR) 100 UNIT/ML SYR SQ SCH (21:46)
[2020-07-21 23:12] LABS: % Iron Saturation 14.14 (12.00-45.00)
[2020-07-21 23:21] LABS: Ferritin 114.7 ng/mL (10.0-291.0)
--- NOTE | 2020-07-21 23:29 | PN ---
PROGRESS NOTE DATE OF SERVICE: 07/21/2020 REASON FOR FOLLOWUP: 1. Fever. 2. Elevated liver enzymes. INTERVAL HISTORY: The patient is currently afebrile. The patient is breathing comfortably on room air. The patient denies having any chest pain, shortness of breath or cough. No nausea, no vomiting. No abdominal pain. No diarrhea. PHYSICAL EXAMINATION: Blood pressure 126/69, pulse of 75, temperature 98.3. She is 93% on room air. General description is an elderly female lying in bed in no distress. Respiratory system: Unlabored breathing, clear to auscultation anteriorly. Heart S1, S2. Regular rate and rhythm. Abdomen soft. No tenderness. LABS: Hemoglobin is 13.4, white count 7.92. ALT has normalized. DIAGNOSTIC IMPRESSION AND PLAN: 1. Patient with fever, more likely related to her Moderna which the patient not have any obvious focus of infection. Culture has been negative. The patient is currently off antibiotic therapy. 2. Patient with hepatitis C IgM equivocal, could be falsely positive as the patient liver enzymes have normalized. No evidence of any acute hepatitis and no need for any further therapy for the same. MMODL / IJN: [id number] /
[2020-07-22] MEDS: SODIUM CHLORIDE 0.9% 1,000 ML IV SCH ×2 (03:19→12:03)
[2020-07-22 07:34] VITALS: BP 127/63; PULSE 63; RESP 16; TEMP 97.8
[2020-07-22 07:41] LABS: Glucose,Whole Blood 134 mg/dL (75-99)
[2020-07-22] MEDS: INSULIN ASPART (NovoLOG) 100 UNIT/ML VIAL SQ SCH ×4 (08:04→12:03)
[2020-07-22] MEDS: NON FORMULARY DRUG (Cal/D3/Mag11/Zinc/Cop/Mang/Bor [Caltrate 600+D Plus Tablet] 1 EACH Tab PO SCH (08:05)
[2020-07-22] MEDS: MULTIVITAMINS, THERA 1 EACH TAB PO SCH (08:13)
[2020-07-22] MEDS: METOPROLOL SUCCINATE (ER) 50 MG TAB.ER.24H PO SCH (08:13)
[2020-07-22] MEDS: CHOLECALCIFEROL 25 MCG (1000 IU) TABLET PO SCH (08:14)
[2020-07-22] MEDS: lisinopriL 5 MG TAB PO SCH (08:14)
[2020-07-22] MEDS: PIOGLITAZONE 15 MG TAB PO SCH (08:14)
[2020-07-22 11:33] LABS: Glucose,Whole Blood 167 mg/dL (75-99)
--- NOTE | 2020-07-22 12:21 | P.DS ---
Providers Date of admission: 07/20/20 00:47 Expected date of discharge: 07/22/20 (blood pressure is stable controlled, i mproved liver enzyme. With history of hepatitis, panel not available yet) Attending physician: Ellis Ochoa Consults: 07/20/20 13:50 Consult Physician Urgent Consulting Provider: Lisa Osborn Consult Reason/Comments: abn, liver function,hep. A chronic Do you want consulting provider notified?: Yes 07/20/20 14:03 Consult Physician Urgent Consulting Provider: Ana Huang Consult Reason/Comments: fever,hx persist abn.liver function,hep A Do you want consulting provider notified?: Yes Primary care physician: Ellis Ochoa this is dictation on discharge summary by . Date of service 07/22/2020. Final diagnosis: #1 fever, erythema of the left upper arm, status post perforated vaccination second shot. #2 repeat left-sided breast is negative on this admission. #3 abnormal liver enzyme with a history of hepatitis resistant in the past improved on discharge with the consultation with the gastroenterology Lisa Greco and Dr. Huang infectious disease. #4 patient presented to the ER with temperature 101 and I told was 102. #5 hypertension primary currently controlled. #6 diabetes mellitus type 2 associated with hyper glycemia, patient on insulin therapy. #7 no evidence of bacterial infection, negative chest x-ray, negative urine analysis, white count was normal. Presentation to the emergency room: Fever 101 at home [address] Vega admitted her to the hospital and started her on Rocephin. And obtain COVID test. Hospital course: As patient presented with hyperglycemia and uncontrolled diabetes mellitus patient started on her insulin and added the pioglitazone small dose 15 mg and subsequently the blood sugar improved. Patient blood pressure progressively increased and we adjusted her blood pressure medication and her blood pressure according to the monitoring was yesterday progressively 173/73. Her metoprolol to succinate increased to 50 mg once a day, added lisinopril 5 mg once a day, and was started prior to that on pioglitazone. Patient did very well her blood pressure is controlled today and her blood sugar also controlled. On discharge: [id number] exam. Vital sign 90 7.8F oral, her pulse rate 63/m regular sinus, respiratory rate 16/m nonlabored. Her blood pressure on discharge 127/63 with a mean 84., pulse ox on the room air 96-98%. The head was normocephalic and atraumatic, pupil was equal reactive, conjunctivae Bellis pink sclera was nonicteric. Normal oropharynx with upper plate denture and lower natural teeth. Neck was supple no JVD no thyromegaly no lymph adenopathy trachea midline. Chest is clear to auscultation and percussion no wheezes no rhonchi's. Heart regular sinus rhythm, she had left sternal border grade 2/6 murmur. Abdomen: Soft obese positive bowel sounds no organ enlargement. The ultrasound report not available at the time of discharge. Extremities no edema and positive pulses. Neurologically stable no lateralizing sign and ambulatory No heparin or anti-coagulant applied as patient was fully ambulatory. Assessment and plan. Patient stable currently clinically and vital sign for discharge home to be followed by the consulting physician. Dr. Escobar, Lisa, Dr. Huang, also by primary care Dr. Mario. We'll continue the current medication and prescription was given with the change of medication #1 he metoprolol succinate become 50 mg once a day. #2 added to her program lisinopril 5 mg daily. #3 added pioglitazone 15 mg once a day. Patient will be monitoring and seen in the office. We'll be discharging the patient today as she has been medically stable with a blood pressure was controlled Patient Condition at Discharge: Good Plan - Discharge Summary Discharge Rx Participant: Yes New Discharge Prescriptions: New Pioglitazone [Actos] 15 mg PO DAILY #30 tab lisinopriL [Zestril] 5 mg PO DAILY #30 tab Metoprolol Succinate (ER) [Toprol XL] 50 mg PO DAILY #30 tab.er.24h Acetaminophen Tab [Tylenol] 650 mg PO Q6HR PRN tab PRN Reason: Mild Pain Or Fever > 100.5 Continue Doxylamine Succinate [Unisom] 25 mg PO HS PRN PRN Reason: Insomnia amLODIPine BESYLATE [Norvasc] 10 mg PO HS Eleuterio/D3/Mag11/Zinc/Marketing Editor/Arie/Bor [Caltrate 600+D Plus Tablet] 1 tab PO DAILY Aspirin EC [Ecotrin Low Dose] 81 mg PO HS Multivit with Calcium,Iron,Min [Women's Multivitamin] 1 tab PO DAILY Insulin Aspart [NovoLOG Flexpen] See Protocol SQ AC-TID Cholecalciferol [Vitamin D3 (25 Mcg = 1000 Iu)] 25 mcg PO DAILY Insulin Glargine,Hum.rec.anlog [Lantus Solostar] 10 unit SQ HS Discontinued Metoprolol Succinate [Toprol XL] 25 mg PO DAILY Discharge Medication List Eleuterio/D3/Mag11/Zinc/Marketing Editor/Arie/Bor [Caltrate 600+D Plus Tablet] 1 tab PO DAILY 01/20/16 [History] Doxylamine Succinate [Unisom] 25 mg PO HS PRN 01/20/16 [History] amLODIPine BESYLATE [Norvasc] 10 mg PO HS 01/20/16 [History] Aspirin EC [Ecotrin Low Dose] 81 mg PO HS 07/20/20 [History] Cholecalciferol [Vitamin D3 (25 Mcg = 1000 Iu)] 25 mcg PO DAILY 07/20/20 [History] Insulin Aspart [NovoLOG Flexpen] See Protocol SQ AC-TID 07/20/20 [History] Insulin Glargine,Hum.rec.anlog [Lantus Solostar] 10 unit SQ HS 07/20/20 [History] Multivit with Calcium,Iron,Min [Women's Multivitamin] 1 tab PO DAILY 07/20/20 [History] Acetaminophen Tab [Tylenol] 650 mg PO Q6HR PRN tab 07/22/20 [Rx] Metoprolol Succinate (ER) [Toprol XL] 50 mg PO DAILY #30 tab.er.24h 07/22/20 [Rx] Pioglitazone [Actos] 15 mg PO DAILY #30 tab 07/22/20 [Rx] lisinopriL [Zestril] 5 mg PO DAILY #30 tab 07/22/20 [Rx] Follow up Appointment(s)/Referral(s): Malia Tabares PAC [REFERRING] - 1 Week Ana Huang MD [STAFF PHYSICIAN] - 1 Week Ellis Ochoa MD [Primary Care Provider] - 1-2 days
--- NOTE | 2020-07-22 13:01 | PN ---
PROGRESS NOTE DATE OF SERVICE: 07/22/2020 REASON FOR FOLLOWUP: 1. Fever possibly related to her COVID vaccine. 2. Equivocal hepatitis A antibody. INTERVAL HISTORY: The patient is currently afebrile. The patient is feeling better. She is breathing comfortably. Patient denies having any chest pain, shortness of breath or cough. No nausea, no vomiting. No abdominal pain or diarrhea. PHYSICAL EXAMINATION: Blood pressure 127/63 with a pulse of 63, temperature 97.8. She is 98% on room air. General description is an elderly female lying in bed in no distress. RESPIRATORY SYSTEM: Unlabored breathing, clear to auscultation anteriorly. HEART: S1, S2. Regular rate and rhythm. ABDOMEN: Soft, no tenderness. LABS: No new labs have been obtained today. DIAGNOSTIC IMPRESSION AND PLAN: 1. Patient with fever likely related to her COVID vaccine, showed no focus of infection. Currently being monitored closely off antibiotic therapy. 2. Patient with equivocal hepatitis A possibly falsely positive as the patient did not have any significantly elevated liver enzyme behavior because of acute hepatitis A. All her questions and concerns were answered. MMODL / IJN: [id number] /
[2020-07-22 13:09] LABS: Ceruloplasmin 27.3 mg/dL (20.0-60.0)
--- NOTE | 2020-07-23 09:16 | US ---
EXAMINATION TYPE: US liver DATE OF EXAM: 07/22/2020 COMPARISON: CT 05/13/2017 CLINICAL HISTORY: elev LFT. EXAM MEASUREMENTS: Liver Length: 19.2 cm Gallbladder Wall: Surgically absent CBD: 0.7 cm Right Kidney: 11.6 x 3.8 x 4.5 cm Pancreas: Partially obscured by bowel gas, unremarkable as seen Liver: Increased attenuation, decreased visualization of vessels, hepatomegaly, heterogeneous echote xture Gallbladder: Surgically absent Evidence for sonographic Heredia's sign:no CBD: wnl Right Kidney: wnl *Anterior to pancreas at area of gallbladder fossa is anechoic area of unknown etiology. IMPRESSION: Correlate for possible hepatic steatosis, hepatocellular disease, there is hepatomegaly. Hypoechoic area at the site of patient's prior surgery may be postop
[2020-07-24 11:02] LABS: Protein, Total 6.5 g/dL (6.2-8.2)
[2020-07-24 16:22] LABS: Albumin 3.52 g/dL (3.80-4.90); Gamma Globulin 0.98 g/dL (0.70-1.50)
== END 2020-07-22 13:50 | disposition home or self-care (01) ==
LOC: EC 21:44 → 4SSUR 07-20 00:47
PROVIDERS: ADMIT Internal Medicine; ATTEND Internal Medicine
DX: R50.83 Postvaccination fever (principal); L27.0 Generalized skin eruption due to drugs and medicaments taken internally; T50.B95A Adverse effect of other viral vaccines, initial encounter; R74.8 Abnormal levels of other serum enzymes; E11.65 Type 2 diabetes mellitus with hyperglycemia; I11.9 Hypertensive heart disease without heart failure; E78.5 Hyperlipidemia, unspecified; Z20.822 Contact with and (suspected) exposure to COVID-19; B15.9 Hepatitis A without hepatic coma; M19.90 Unspecified osteoarthritis, unspecified site; E83.42 Hypomagnesemia; R00.0 Tachycardia, unspecified; E66.9 Obesity, unspecified; Z68.33 Body mass index [BMI] 33.0-33.9, adult; M41.9 Scoliosis, unspecified; Z79.82 Long term (current) use of aspirin; Z79.4 Long term (current) use of insulin; Z79.899 Other long term (current) drug therapy; Z88.2 Allergy status to sulfonamides; Z90.710 Acquired absence of both cervix and uterus; Z98.890 Other specified postprocedural states; Z82.49 Family history of ischemic heart disease and other diseases of the circulatory system; Z82.5 Family history of asthma and other chronic lower respiratory diseases; Z82.3 Family history of stroke
CPT/HCPCS: 96376; 96361; 96366; 96367; 96365; 99284; 36415; 94760; 93005; 86709; 80053 ×2; 80074; 82728; 82248; 83540; 83550; 83605; 83615; 83735 ×2; 84100; 85025 ×2; 85610; 85730; 86140; 81001; 87040; 82103; 84165; 82390; 86038; 83036; 87635; 71045; 76705; G0378 ×3; J0696 ×2; J3475

== ENCOUNTER → 2020-08-07 | Outpatient (CLI) | payer MEDICARE ==
[2020-08-08 02:23] LABS: African American GFR (CKD) 85.4 (60.0-200.0); Albumin 4.3 g/dL (3.80-4.90); Albumin/Globulin Ratio 1.79 (1.60-3.17); Anion Gap 11.2 mmol/L (4.00-12.00); BUN/Creat Ratio 28.75 Ratio (12.00-20.00); Calcium 9.8 mg/dL (8.7-10.3); Carbon Dioxide 26.8 mmol/L (21.6-31.8); Globulin 2.4 g/dL (1.6-3.3); Non-African American GFR(CKD) 73.7 (60.0-200.0); Potassium 4.5 mmol/L (3.5-5.5); Total Bilirubin 0.6 mg/dL (0.3-1.2); Total Protein 6.7 g/dL (6.2-8.2)
== END | disposition home or self-care (01) ==
LOC: LABWHC1 13:13
PROVIDERS: ATTEND Internal Medicine
DX: R74.01 Elevation of levels of liver transaminase levels (principal)
CPT/HCPCS: 36415; 80053

== ENCOUNTER 2020-08-12 07:09 | Day surgery (SDC) | payer MEDICARE ==
[2020-08-09 10:13] VITALS: BMI 32.8
[~2020-08-12 07:09] MED LIST: LACTATED RINGERS 1,000 ML IV SCH; LIDOCAINE 1% (10MG/ML) FOR IV START INTRADERMA PRN
[2020-08-12 07:37] VITALS: RESP 16; TEMP 97.1
[2020-08-12 07:45] LABS: Glucose,Whole Blood 131 mg/dL (75-99)
[2020-08-12] MEDS ORDERED: PROPOFOL 10 MG/ML 20 ML VIAL IV ONE (08:12)
--- NOTE | 2020-08-12 08:45 | P.PCN ---
Date of Procedure: 08/12/20 Description of Procedure: BRIEF HISTORY: Patient is a 74-year-old female presenting for outpatient colonoscopy for screening for malignant neoplasm of the colon. No change in bowel habits, no blood per rectum, no abdominal pain. Last colonoscopy over 10 years ago. PROCEDURE PERFORMED: Colonoscopy with polypectomy. PREOPERATIVE DIAGNOSIS: Screening for malignant neoplasm of the colon, last colonoscopy over 10 years ago. ESTIMATED BLOOD LOSS: Minimal. IV sedation per Anesthesia. PROCEDURE: After informed consent was obtained, the patient, was brought into the endoscopy unit. IV sedation was administered by Anesthesia under continuous monitoring. Digital rectal examination was normal. Initially the Olympus CF-190 flexible video colonoscope was then inserted in the rectum, gradually advanced into the cecum without any difficulty. Careful examination was performed as the scope was gradually being withdrawn. Ileocecal valve and the appendiceal orifice were visualized and appeared normal. Prep was excellent. Mucosa of the cecum, ascending colon, transverse colon, descending colon, sigmoid colon, and rectum appeared normal, with 1 diminutive 1 mm transverse colon polyp removed with cold forcep polypectomy. Retroflexion was performed in the rectum and no lesions were seen, with low-grade internal hemorrhoids seen. The patient tolerated the procedure well. IMPRESSION: Diminutive transverse colon polyp removed with cold forcep polypectomy. Internal hemorrhoids RECOMMENDATIONS: Findings of this examination were discussed with the patient and her family. Okay to resume diet. Okay to resume medication. Await pathology from polypectomy. Recommend repeat colonoscopy in 7-10 years pending pathology from polypectomy.
[2020-08-12 09:03] VITALS: BP 137/61; PULSE 61
== END 2020-08-12 09:17 | disposition home or self-care (01) ==
LOC: ORWHC2ENDO 07:09
PROVIDERS: ATTEND Internal Medicine
DX: Z12.11 Encounter for screening for malignant neoplasm of colon (principal); D12.3 Benign neoplasm of transverse colon; K64.8 Other hemorrhoids; E11.9 Type 2 diabetes mellitus without complications; I10 Essential (primary) hypertension; E78.5 Hyperlipidemia, unspecified; K76.0 Fatty (change of) liver, not elsewhere classified; Z88.2 Allergy status to sulfonamides; Z98.890 Other specified postprocedural states; Z79.899 Other long term (current) drug therapy; Z79.4 Long term (current) use of insulin; Z79.82 Long term (current) use of aspirin; Z90.89 Acquired absence of other organs; Z90.710 Acquired absence of both cervix and uterus; Z97.2 Presence of dental prosthetic device (complete) (partial); Z87.898 Personal history of other specified conditions
CPT/HCPCS: 88305; 45380; J2704

== ENCOUNTER → 2021-07-15 | Outpatient (CLI) | payer MEDICARE ==
--- NOTE | 2021-07-16 13:49 | MM ---
Reason for exam: screening (asymptomatic). Last mammogram was performed 1 year and 1 month ago. History: Patient is postmenopausal. Physical Findings: A clinical breast exam by your physician is recommended on an annual basis and results should be correlated with mammographic findings. MG 3D Screening Mammo W/Cad Bilateral CC and MLO view(s) were taken. Prior study comparison: June 28, 2020, bilateral MG 3d screening mammo w/cad. August 31, 2018, bilateral MG screening mammo w CAD. The breast tissue is heterogeneously dense. This may lower the sensitivity of mammography. Stable benign calcifications. There is no discrete abnormality. No significant changes when compared with prior studies. ASSESSMENT: Benign, BI-RAD 2 RECOMMENDATION: Routine screening mammogram of both breasts in 1 year.
== END | disposition home or self-care (01) ==
LOC: RADMAMWWP 14:26
PROVIDERS: ATTEND Internal Medicine
DX: Z12.31 Encounter for screening mammogram for malignant neoplasm of breast (principal); Z78.0 Asymptomatic menopausal state
CPT/HCPCS: 77063; 77067

== ENCOUNTER → 2022-04-20 | Outpatient (CLI) | payer MEDICARE ==
[2022-04-20 18:17] LABS: Basophils # (A) 0.03 X 10*3/uL (0.00-0.10); Basophils % (A) 0.7 %; Eosinophils # (A) 0.19 X 10*3/uL (0.04-0.35); Eosinophils % (A) 4.5 %; HCT 42.4 % (37.2-46.3); HGB 13.7 g/dL (12.0-15.0); Immature Grans, Automated 0.2 %; Lymphocytes # (A) 1.34 X 10*3/uL (0.90-5.00); Lymphocytes % (A) 31.5 %; MCH 29.5 pg (27.0-32.0); MCHC 32.3 g/dL (32.0-37.0); MCV 91.4 fL (80.0-97.0); Mean Platelet Volume 10.3 fL (9.5-12.2); Monocytes # (A) 0.33 X 10*3/uL (0.20-1.00); Monocytes % (A) 7.7 %; NRBC Per 100 WBC 0 /100 WBCS (0.0-0.0); Neutrophils # (A) 2.36 X 10*3/uL (1.80-7.70); Neutrophils % (A) 55.4 %; Platelet Count 167 X 10*3/uL (140-440); RBC 4.64 X 10*6/uL (4.10-5.20); RDW 13.2 % (11.5-14.5); WBC 4.26 X 10*3/uL (4.50-10.00)
[2022-04-20 18:45] LABS: Erythrocyte Sedimentation Rate 16 mm/Hr (0-30)
[2022-04-20 18:50] LABS: ALT 34 U/L (8-44); AST 37 U/L (13-35); African American GFR (CKD) 102.4 (60.0-200.0); Albumin 4.4 g/dL (3.8-4.9); Albumin/Globulin Ratio 1.68 (1.60-3.17); Alkaline Phosphatase 56 U/L (41-126); BUN/Creat Ratio 21.24 Ratio (12.00-20.00); Blood Urea Nitrogen 13.4 mg/dL (9.0-27.0); Calcium 9.6 mg/dL (8.7-10.3); Carbon Dioxide 24.4 mmol/L (20.0-27.5); Chloride 106 mmol/L (96-109); Creatine Kinase 51 U/L (26-186); Globulin 2.6 g/dL (1.6-3.3); Glucose 123 mg/dL (70-110); Magnesium 1.9 mg/dL (1.5-2.4); Non-African American GFR(CKD) 88.3 (60.0-200.0); Phosphorus 4.1 mg/dL (2.4-5.1); Potassium 3.9 mmol/L (3.5-5.5); Sodium 142 mmol/L (135-145); Total Protein 6.9 g/dL (6.2-8.2); Uric Acid 7.2 mg/dL (2.9-7.7)
[2022-04-20 19:03] LABS: C Reactive Protein <0.30 mg/dL (0.00-0.80); Chol/HDL Ratio 3.05 Ratio
== END | disposition home or self-care (01) ==
LOC: LABWHC1 11:02
PROVIDERS: ATTEND Internal Medicine
DX: I12.9 Hypertensive chronic kidney disease with stage 1 through stage 4 chronic kidney disease, or unspecified chronic kidney disease (principal); E11.22 Type 2 diabetes mellitus with diabetic chronic kidney disease; E11.65 Type 2 diabetes mellitus with hyperglycemia; N18.30 Chronic kidney disease, stage 3 unspecified; E78.5 Hyperlipidemia, unspecified; E55.9 Vitamin D deficiency, unspecified; E03.9 Hypothyroidism, unspecified; M10.9 Gout, unspecified
CPT/HCPCS: 36415; 80053; 80061; 82306; 82550; 83036; 83735; 84100; 84443; 84550; 85025; 85652; 86140

== ENCOUNTER → 2022-04-22 | Outpatient (CLI) | payer MEDICARE ==
--- NOTE | 2022-04-22 12:47 | XR ---
EXAMINATION TYPE: XR ankle complete LT DATE OF EXAM: 04/22/2022 COMPARISON: NONE HISTORY: Pain FINDINGS: Three views of the ankle demonstrate the ankle mortise to be intact and symmetric. The joint spaces are preserved. The osseous structures are intact. Tiny spurs involving the medial and lateral malle olus. More sizable cystic spurs are seen involving the calcaneus. Generalized soft tissue edema noted . IMPRESSION: 1. Hypertrophic spurring involving the ankle and calcaneus. 2 no acute fracture. 2. Correlate for generalized mild soft tissue edema.
--- NOTE | 2022-04-22 12:48 | XR ---
EXAMINATION TYPE: XR foot complete LT DATE OF EXAM: 04/22/2022 COMPARISON: NONE HISTORY: Pain TECHNIQUE: Three views are submitted. FINDINGS: The osseous structures are intact. There is no acute fracture or dislocation. The diffuse osteopen ia. Mild narrowing of all DIP joints and first MTP joint. Appears to be narrowing the first tarsal me tatarsal joint. Tiny calcification likely vascular. Calcaneal spurs are noted. IMPRESSION: 1. Diffuse osteopenia with calcaneal spurs 2. Mild DIP joint and first MTP joint arthropathy. Most likely on the basis of osteoarthritis.
== END | disposition home or self-care (01) ==
LOC: RADXRMAIN 12:16
PROVIDERS: ATTEND Internal Medicine
DX: M77.32 Calcaneal spur, left foot (principal); M25.572 Pain in left ankle and joints of left foot; R60.1 Generalized edema

== ENCOUNTER → 2022-05-12 | Outpatient (CLI) | payer MEDICARE ==
--- NOTE | 2022-05-13 07:19 | MR ---
EXAMINATION TYPE: MR ankle LT wo con DATE OF EXAM: 05/12/2022 COMPARISON: Left ankle x-ray April 22, 2022 HISTORY: Left ankle pain for 1 month. Standard multiplanar, multisequence MRI departmental protocol Multiplanar, multisequence images of the left ankle were acquired without contrast. Diffusion weighte d imaging was performed. FINDINGS: No suspicious increased T2 signal or bone marrow edema is seen. Midfoot level shows areas o f mild to moderate narrowing and spurring with some subchondral cystic change and navicular articulat ion with the cuneiforms and more severe narrowing at the first metatarsal base articulation with the medial cuneiform. No areas of serpiginous diminished T1 signal to suggest occult fracture. The talar dome is maintained. Ankle mortise symmetry is preserved. No os trigonum. Small tibiotalar joint effus ion presumed physiologic. The anterior syndesmosis or tibiotalar ligament is intact but thickened. Similar finding to the poste rior syndesmosis or tibiofibular ligament. The anterior talofibular ligament shows irregularity and t hinning consistent with partial tearing near axial image 22. The posterior talofibular ligament shows thickening. The medial deltoid ligament shows some increased signal and thickening. The plantar fascia is grossly intact with moderate size inferior calcaneal spur redemonstrated. Dista l Achilles tendon is intact. There is some subcutaneous edema in the adjacent soft tissue noted. There is increased signal consistent with significant partial tearing of the posterior tibial tendon beginning at level of the medial malleolus extending inferiorly to level of the anterior to mid talus . The peroneal tendons are intact. Loss of normal sinus tarsi fat is seen. No significant subcutaneous edema is seen. Possible old fracture involving the superior anterior aspect of the talus seen best on sagittal images. IMPRESSION: 1. Significant partial tearing of the PT tendon. 2. Suspect remote injury with thickening of the majority of the stabilizing ligaments of the ankle as detailed above. 3. Moderate midfoot arthropathy is noted as detailed above. 4. MRI findings suggest sinus tarsi syndrome. Correlate clinically.
== END | disposition home or self-care (01) ==
LOC: RADMRIMAIN 14:11
PROVIDERS: ATTEND Internal Medicine
DX: M19.072 Primary osteoarthritis, left ankle and foot (principal); M24.872 Other specific joint derangements of left ankle, not elsewhere classified; M25.772 Osteophyte, left ankle

== ENCOUNTER → 2022-07-16 | Outpatient (CLI) | payer MEDICARE ==
--- NOTE | 2022-07-19 12:42 | MM ---
Reason for Exam: Screening (asymptomatic). Last screening mammogram was performed 12 month(s) ago. Patient History: Menarche at age 13. First Full-Term at age 19. Hysterectomy at age 52. Postmenopausal. Risk Values: Suzy 5 year model risk: 1.4%. NCI Lifetime model risk: 3.2%. Prior Study Comparison: 08/31/2018 Bilateral Screening Mammogram, [facility]. 06/28/2020 Bilateral Screening Mammogram, [facility]. 07/15/2021 Bilateral Screening Mammogram, [facility]. Tissue Density: There are scattered fibroglandular densities. Findings: Analyzed By CAD. There is no suspicious group of microcalcifications or new suspicious mass in either breast. Overall Assessment: Benign, BI-RAD 2 Management: Screening Mammogram of both breasts in 1 year. 1. Patient should continue monthly self breast exams. 2. A clinical breast exam by your physician is recommended on an annual basis. 3. This exam should not preclude additional follow-up of suspicious palpable abnormalities. Electronically signed and approved by: Dayana Roca M.D. Radiologist
== END | disposition home or self-care (01) ==
LOC: RADMAMWWP 14:00
PROVIDERS: ATTEND Internal Medicine
DX: Z12.31 Encounter for screening mammogram for malignant neoplasm of breast (principal); Z78.0 Asymptomatic menopausal state
CPT/HCPCS: 77063; 77067

== ENCOUNTER → 2023-05-10 | Outpatient (CLI) | payer MEDICARE ==
[2023-05-10 15:15] LABS: Basophils # (A) 0.03 X 10*3/uL (0.00-0.10); Basophils % (A) 0.6 %; Eosinophils # (A) 0.23 X 10*3/uL (0.04-0.35); Eosinophils % (A) 4.8 %; HCT 42.5 % (37.2-46.3); HGB 13.8 g/dL (12.0-15.0); Lymphocytes # (A) 1.33 X 10*3/uL (0.90-5.00); Lymphocytes % (A) 27.7 %; MCH 29.2 pg (27.0-32.0); MCHC 32.5 g/dL (32.0-37.0); Mean Platelet Volume 10.4 FL (9.5-12.2); Monocytes # (A) 0.35 X 10*3/uL (0.20-1.00); Monocytes % (A) 7.3 %; NRBC Per 100 WBC 0 X 10*3/uL (0.00-0.01); Neutrophils # (A) 2.85 X 10*3/uL (1.80-7.70); Neutrophils % (A) 59.4 %; Platelet Count 171 X 10*3/uL (140-440); RBC 4.72 X 10*6/uL (4.10-5.20); RDW 13.2 % (11.5-14.5)
[2023-05-10 16:34] LABS: Chol/HDL Ratio 2.96 Ratio; Creatine Kinase 45 U/L (26-186); LDL Cholesterol,Calculated 23.2 mg/dL (0.0-131.0)
[2023-05-10 16:35] LABS: % Iron Saturation 18.14 (12.00-45.00); ALT 30 U/L (8-44); AST 38 U/L (13-35); Albumin 4.3 g/dL (3.8-4.9); Albumin/Globulin Ratio 1.72 Ratio (1.60-3.17); Alkaline Phosphatase 54 U/L (41-126); Blood Urea Nitrogen 14.4 mg/dL (9.0-27.0); C Reactive Protein <0.30 mg/dL (0.00-0.80); Carbon Dioxide 25.4 mmol/L (21.6-31.8); Chloride 106 mmol/L (96-109); Ferritin 72.4 ng/mL (10.0-291.0); Globulin 2.5 g/dL (1.6-3.3); Glucose 121 mg/dL (70-110); Iron 82 UG/DL (50-170); Magnesium 1.9 mg/dL (1.5-2.4); Phosphorus 3.5 mg/dL (2.4-5.1); Potassium 3.9 mmol/L (3.5-5.5); Sodium 145 mmol/L (135-145); Total Bilirubin 0.6 mg/dL (0.3-1.2); Total Iron Binding Capacity 452 UG/DL (228-460); Total Protein 6.8 g/dL (6.2-8.2); Uric Acid 7.7 mg/dL (2.9-7.7)
[2023-05-10 17:54] LABS: Erythrocyte Sedimentation Rate 16 mm/Hr (0-30)
== END | disposition home or self-care (01) ==
LOC: LABWHC1 11:02
PROVIDERS: ATTEND Internal Medicine
DX: Z00.00 Encounter for general adult medical examination without abnormal findings (principal); I12.9 Hypertensive chronic kidney disease with stage 1 through stage 4 chronic kidney disease, or unspecified chronic kidney disease; D63.1 Anemia in chronic kidney disease; E87.8 Other disorders of electrolyte and fluid balance, not elsewhere classified; M10.9 Gout, unspecified; E78.5 Hyperlipidemia, unspecified; E66.9 Obesity, unspecified; E11.65 Type 2 diabetes mellitus with hyperglycemia; E11.22 Type 2 diabetes mellitus with diabetic chronic kidney disease; E55.9 Vitamin D deficiency, unspecified; M81.0 Age-related osteoporosis without current pathological fracture; R80.9 Proteinuria, unspecified; N18.30 Chronic kidney disease, stage 3 unspecified
CPT/HCPCS: 36415; 80053; 80061; 82306; 82550; 82728; 83036; 83540; 83550; 83735; 83970; 84100; 84443; 84550; 85025; 85652; 86140

== ENCOUNTER → 2023-07-09 | Outpatient (CLI) | payer MEDICARE ==
--- NOTE | 2023-07-09 12:23 | XR ---
EXAMINATION TYPE: XR chest 2V DATE OF EXAM: 07/09/2023 COMPARISON: 07/19/2020 HISTORY: 77-year-old female R05.3, chronic cough TECHNIQUE: Frontal and lateral views FINDINGS: The cardiomediastinal silhouette, aorta, and pulmonary vasculature are within normal limits. Hazy alia g densities related to body habitus and overlying soft tissue. Lungs and pleural spaces are clear. DI SH throughout the mid and lower thoracic spine. IMPRESSION: No acute cardiopulmonary process.
== END | disposition home or self-care (01) ==
LOC: RADXRMAIN 09:24
PROVIDERS: ATTEND Internal Medicine
DX: J12.9 Viral pneumonia, unspecified (principal); J06.9 Acute upper respiratory infection, unspecified; R05.3 Chronic cough
CPT/HCPCS: 71046

== ENCOUNTER → 2023-07-19 | Outpatient (CLI) | payer MEDICARE ==
--- NOTE | 2023-07-20 09:51 | MM ---
Reason for Exam: Screening (asymptomatic). Last screening mammogram was performed 12 month(s) ago. Patient History: Menarche at age 13. First Full-Term at age 19. Hysterectomy at age 52. Postmenopausal. Risk Values: Suzy 5 year model risk: 1.4%. NCI Lifetime model risk: 3.0%. Prior Study Comparison: 06/28/2020 Bilateral Screening Mammogram, [facility]. 07/15/2021 Bilateral Screening Mammogram, [facility]. 07/16/2022 Bilateral MG 3D screening mammo w/cad, [facility]. Tissue Density: There are scattered areas of fibroglandular density. Findings: Analyzed By CAD. There is no suspicious group of microcalcifications or new suspicious mass. Overall Assessment: Negative, BI-RAD 1 Management: Screening Mammogram of both breasts in [address] [facility] will attempt to contact patient to return for supplemental views and ultrasound if indicated. Patient should continue monthly self-breast exams. A clinical breast exam by your physician is recommended on an annual basis. This exam should not preclude additional follow-up of suspicious palpable abnormalities. Note on Suzy scores and lifetime risk: 1. A Suzy score greater than 3% is considered moderate risk. If this is the case, consider specialist referral to assess eligibility for a risk reducing agent. 2. If overall lifetime risk for the development of breast cancer is 20% or higher, the patient may qualify for future screening with alternating mammogram and breast MRI. Electronically signed and approved by: Zeeshan Becerra DO
== END | disposition home or self-care (01) ==
LOC: RADMAMWWP 09:46
PROVIDERS: ATTEND Internal Medicine
DX: Z12.31 Encounter for screening mammogram for malignant neoplasm of breast (principal); Z78.0 Asymptomatic menopausal state
CPT/HCPCS: 77063; 77067

== ENCOUNTER → 2023-09-14 | Outpatient (CLI) | payer MEDICARE ==
[2023-09-14 20:26] LABS: ALT 39 U/L (8-44); AST 50 U/L (13-35); Albumin 4.1 g/dL (3.8-4.9); Albumin/Globulin Ratio 1.86 Ratio (1.60-3.17); Alkaline Phosphatase 60 U/L (41-126); BUN/Creat Ratio 17.71 Ratio (12.00-20.00); Bilirubin, Conjugated <0.20 mg/dL (0.20-0.40); Bilirubin,Unconjugated >0.20 mg/dL (0.20-1.00); Blood Urea Nitrogen 12.4 mg/dL (9.0-27.0); Calcium 9.1 mg/dL (8.7-10.3); Chloride 109 mmol/L (96-109); Globulin 2.2 g/dL (1.6-3.3); Glucose 128 mg/dL (70-110); Magnesium 1.9 mg/dL (1.5-2.4); Potassium 3.8 mmol/L (3.5-5.5); Sodium 144 mmol/L (135-145); Total Bilirubin 0.4 mg/dL (0.3-1.2); Total Protein 6.3 g/dL (6.2-8.2); Uric Acid 8.9 mg/dL (2.9-7.7)
== END | disposition home or self-care (01) ==
LOC: LABWHC1 08:48
PROVIDERS: ATTEND Internal Medicine
DX: E11.65 Type 2 diabetes mellitus with hyperglycemia (principal); M81.0 Age-related osteoporosis without current pathological fracture; E55.9 Vitamin D deficiency, unspecified; M10.9 Gout, unspecified
CPT/HCPCS: 36415; 80048; 80076; 82306; 83036; 83735; 84550

== ENCOUNTER → 2023-09-23 | Outpatient (CLI) | payer MEDICARE ==
--- NOTE | 2023-09-23 12:29 | XR ---
EXAMINATION TYPE: XR humerus LT DATE OF EXAM: 09/23/2023 11:59 AM CLINICAL INDICATION:Female, 77 years old with history of R22.32 SWELLING, MASS AND LUMP LT LIMB; [facility] COMPARISON: None TECHNIQUE: XR humerus LT examined in frontal and lateral projections. FINDINGS: No evidence of acute osseous pathology, joint dislocation, or soft tissue swelling. The rem aining portions of the visualized chest are unremarkable. Joint space narrowing of the shoulder with osteophyte formation of the glenoid distal clavicle and acromion. Supracondylar bony protuberance com patible with anatomic variant. IMPRESSION: 1. No acute osseous pathology. 2. Mild degeneration changes of the shoulder.
== END | disposition home or self-care (01) ==
LOC: RADXRMAIN 11:37
PROVIDERS: ATTEND Internal Medicine
DX: Z53.9 Procedure and treatment not carried out, unspecified reason (principal)

== ENCOUNTER → 2024-01-11 | Outpatient (CLI) | payer MEDICARE ==
[2024-01-11 15:44] LABS: ALT 33 U/L (8-44); AST 45 U/L (13-35); BUN/Creat Ratio 21.67 Ratio (12.00-20.00); Calcium 9.3 mg/dL (8.7-10.3); Chloride 108 mmol/L (96-109); Glucose 129 mg/dL (70-110); Potassium 3.9 mmol/L (3.5-5.5); Sodium 144 mmol/L (135-145)
== END | disposition home or self-care (01) ==
LOC: LABWHC1 09:13
PROVIDERS: ATTEND Internal Medicine
DX: Z00.00 Encounter for general adult medical examination without abnormal findings (principal); E11.65 Type 2 diabetes mellitus with hyperglycemia; R80.9 Proteinuria, unspecified
CPT/HCPCS: 36415; 80048; 83036; 84450; 84460